=== PATIENT | female | born 1990 | race Caucasian/White ===

== ENCOUNTER 2016-08-17 06:00 | Inpatient (IN) | payer MEDICAID ==
--- NOTE | ~2016-08-17 | HP ---
Unit #: [id number] #: [id number] Patient: YOANA FORD [id number] [place] [address] [id number] I MR#: [id number] NAME: YOANA FORD ROOM: P185 Age: 25 Sex: F Admission Date: 08/17/2016 : 1990 Attending Physician: Antwon Ingram M.D. Admitting Physician: Antwon Ingram M.D. Primary Care Physician: Babar Nolan M.D. HISTORY AND PHYSICAL HISTORY OF PRESENT ILLNESS Yoana is a 25 year old admitted to [facility] because of her continued poly-illicit substance abuse to include IV heroin. PAST MEDICAL HISTORY 1. Long history of opioid abuse to include IV heroin. 2. Hepatitis C. PAST SURGICAL HISTORY Nothing reported. ALLERGIES Sulfa. SOCIAL HISTORY Smokes 1/2 pack per day. Drinks alcohol on occasion. Has a long history of poly-illicit substance abuse to include IV heroin. FAMILY HISTORY Medically noncontributory. REVIEW OF SYSTEMS CONSTITUTIONAL: No fever or chills. HEENT: Denies any sore throat, ear pain or runny nose. CARDIOVASCULAR: Denies chest pain, irregular heart rhythm or palpitations. CHEST: Denies shortness of breath or cough. No hemoptysis. GASTROINTESTINAL: Denies nausea, vomiting, diarrhea or chronic constipation. ENDOCRINE: Denies history of increased thirst or urination. No recent significant weight loss or gain. GENITOURINARY: Denies dysuria, frequency, or hematuria. SKIN: Denies any rashes. HEMATOLOGIC: Denies history of increased bleeding or bruising. MUSCULOSKELETAL: Denies any hot, swollen joints. No generalized muscle pain. NEUROLOGIC: Denies problems with vision or speech. No frequent, severe headaches. No numbness, tingling or weakness in any extremities. Denies loss of bladder or bowel control. CURRENT MEDICATIONS Detox protocol. PHYSICAL EXAMINATION Unit #: [id number] #: [id number] Patient: YOANA FORD GENERAL: Alert, well-nourished, no apparent distress. VITAL SIGNS: Blood pressure 115/78, heart rate 80, respirations 16, temperature 98.6. WEIGHT: 140. HEIGHT: 5 feet 7 inches. SKIN: Warm and dry without rash or lesion. HEENT: Normocephalic. TMs not viewed. Oral and nasal passages clear. Conjunctivae clear. PERRLA. EOMs intact. NECK: Supple without lymphadenopathy or thyromegaly. HEART: Regular rate and rhythm without murmur. LUNGS: Clear. ABDOMEN: Soft, nontender. : Not done. EXTREMITIES: No evidence of cyanosis, clubbing or edema. Moves all without focal deficit. NEUROLOGICAL: Grossly within normal limits. Cranial Nerves: II: Visual riojas are intact. III, IV AND : Extraocular movements are intact. Pupils are equal, round and reactive to light. V: Facial sensation is grossly normal. VII: Facial movements and expression are normal. VIII: Auditory acuity grossly intact. IX, X: Uvula is midline. Phonation is normal. XI: Patient shrugs shoulders and turns head normally. XII: Tongue protrudes in the midline. Sensory and Motor Function: Sensory and motor sensation is grossly normal. Motor: moves all extremities well. Coordination: Gait is normal. Deep Tendon Reflexes: Intact. IMPRESSION Psychiatric admission. RECOMMENDATIONS PSYCHIATRIC: Per psychiatrist. MEDICAL: See no contraindications to participate in facility's activities. MEDICAL PROGNOSIS Good. MEDICAL CONDITION Stable. Dictated by... Elyssa LeeALisa. for Buddy Beltran/lida TD: 08/17/2016 21:30 JOB #: [id number] Unit #: [id number] #: [id number] Patient: YOANA FORD HISTORY AND PHYSICAL Page 1 of 1 X Sarah Bernard HISTORY AND PHYSICAL
--- NOTE | ~2016-08-17 | DS ---
Unit #: [id number] #: [id number] Patient: DANITA FORD [id number] [place] [address] [id number] I MR#: [id number] NAME: DANITA FORD ROOM: [facility] Age: 25 Sex: F Admission Date: 08/17/2016 : 1990 Discharge Date: 08/18/2016 Attending Physician: Antwon Ingram M.D. Primary Care Physician: Babar Nolan M.D. DISCHARGE SUMMARY REASON FOR ADMISSION The patient is 25-year-old female, admitted with a history of Xanax and opioid abuse. HOSPITAL COURSE The patient was admitted to the [facility] unit and placed on routine detoxification protocol for opioids and benzodiazepines. She exhibited significant physical distress related to her withdrawal. On 08/18/2016, the patient suffered a seizure and was not for medical clearance. She was subsequently admitted to the [facility] hospital and discharge was ordered. 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 DISPOSITION ON DISCHARGE Under the circumstances of discharge, no medications or followup were arranged for the patient. Dictated by... Antwon Ingram M.D. CB/taylor TD: 08/20/2016 01:40 JOB #: [id number] DISCHARGE SUMMARY Page 1 of X Antwon Ingram MD X DISCHARGE SUMMARY
--- NOTE | ~2016-08-17 | PN ---
Unit #: [id number] #: [id number] Patient: DANITA FORD [id number] [facility] [address] [place] [address] [id number] I MR#: [id number] NAME: DANITA FORD ROOM: P185 Age: 25 Sex: F Admission Date: 08/17/2016 : 1990 Attending Physician: Antwon Ingram M.D. Admitting Physician: Antwon Ingram M.D. Primary Care Physician: Buddy Dumont PROGRESS NOTES DATE 08/18/2016 DISCUSSION The patient appears to be in significant GI distress. Today, has had severe diarrhea and feels as though she has soiled herself and is continuing to vomit copiously. We continue current aggressive treatment for her opioid withdrawal. Dictated by... Antwon Ingram M.D. CB/lida TD: 08/18/2016 17:41 JOB #: [id number] SIMI PROGRESS NOTES Page 1 of 1 X Antwon Ingram MD X PROGRESS NOTE
--- NOTE | ~2016-08-17 | PA ---
Unit #: [id number] #: [id number] Patient: DANITA FORD [id number] [place] [address] [id number] I MR#: [id number] NAME: DANITA FORD ROOM: P185 Age: 25 Sex: F Admission Date: 08/17/2016 : 1990 Date of Assessment: 08/17/2016 Attending Physician: Antwon Ingram M.D. Admitting Physician: Antwon Ingram M.D. Primary Care Physician: Babar Nolan M.D. PSYCHIATRIC ASSESSMENT IDENTIFYING INFORMATION The patient is a 25-year-old female admitted to the [address] [place] [address] with increasing abuse of heroin and Xanax and depression with suicidal ideation. CHIEF COMPLAINT "I relapsed." INFORMANT Patient, reliability is fair. HISTORY OF PRESENT ILLNESS The patient is a 25-year-old female admitted to the [address] [place] [address] after she had presented to this facility complaining of suicidal ideation with plan to harm herself. The patient reports increasing depression secondary to recent heroin relapse and a recent miscarriage. The patient reports that her plan was to take pills when the family members were asleep. The patient has been using 0.5 gram of heroin and 4 mg of Xanax on a daily basis. She last used on 08/16/2016. She was last hospitalized at this facility under the care of this physician in March of 2016. For more complete history of present illness, please refer to previously dictated notes. PAST PSYCHIATRIC HISTORY Reviewed, no changes. PAST MEDICAL HISTORY Reviewed, no changes. MEDICATIONS None. ALLERGIES Sulfa. FAMILY HISTORY Reviewed, no changes. SOCIAL HISTORY Reviewed, no changes. MENTAL STATUS EXAMINATION Examination at this time reveals the patient to be a well-developed Unit #: [id number] #: [id number] Patient: DANITA FORD well-nourished female appearing her stated age. She is in significant physical distress at the time of examination. She is awake, alert, and oriented in all spheres. Her mood is dysphoric, her affect blunted. Speech is generally well coherent. There are no gross deficits in memory or cognition noted. Intelligence is judged to be in the average range based on fund of knowledge. The patient is cooperative throughout the interview. She is currently endorsing positive suicidal ideation with plan to overdose. She denies homicidal ideation. She denies any psychotic symptoms. Her judgment and insight appear to be intact. ASSETS AND LIABILITIES The patient's assets: Motivation for change. Liabilities: Lack of resources. DIAGNOSTIC IMPRESSION 1. Dysthymic disorder. 2. Opioid use disorder. 3. Sedative-hypnotic use disorder. TREATMENT PLAN The patient remains hospitalized for safety and stabilization. Routine detoxification protocol has been initiated. The patient will participate in appropriate order of milieu activities. She is on detox protocol to cover benzodiazepines and opioids, and suicide precautions are in place. ESTIMATED LENGTH OF STAY 5 to 7 days. Dictated by... Antwon Ingram M.D. Tisha TD: 08/17/2016 14:25 JOB #: [id number] PSYCHIATRIC ASSESSMENT Page 1 of 1 X Antwon Ingram MD X PSYCHIATRIC ASSESSMENT
[2016-08-18 09:34] LABS: URINE APPEARANCE CLEAR; URINE BILIRUBIN NEG (NEG); URINE BLOOD NEG (NEG); URINE COLOR YELLOW; URINE GLUCOSE NEG (NEG); URINE KETONE NEG (NEG); URINE LEUKOCYTE ESTERASE NEG (NEG); URINE NITRATE NEG (NEG); URINE PH 7.5 (5-8); URINE PROTEIN NEG (NEG); URINE SPECIFIC GRAVITY 1.003 (1.003-1.035)
[2016-08-18 09:55] LABS: AMPHETAMINE NEG (NEG); BARBITURATES NEG (NEG); BENZODIAZEPINES POS (NEG); COCAINE NEG (NEG); MARIJUANA NEG (NEG); OPIATES POS (NEG); TRICYCLIC ANTIDEPRESSANTS NEG (NEG); U METHADONE NEG (NEG)
[2016-08-18] MEDS ORDERED: B-1100 MG PO (20:41)
[2016-08-18] MEDS ORDERED: FOLIC ACID1 MG PO (20:41)
[2016-08-18] MEDS ORDERED: MULTI VITAMIN1 EACH PO (20:42)
[2016-08-18] MEDS ORDERED: VITAMIN B-150 MG PO (20:42)
[2016-08-18] MEDS ORDERED: CATAPRES0.1 MG PO (20:44)
[2016-08-18] MEDS ORDERED: IMODIUM2 MG PO (20:45)
[2016-08-18] MEDS ORDERED: BENTYL10 MG PO (20:45)
[2016-08-18] MEDS ORDERED: ZOFRAN PO (20:46)
[2016-08-18] MEDS ORDERED: PHENERGAN25 MG/1 ML INJ (20:47)
[2016-08-18] MEDS ORDERED: PHENERGAN25 M1 PO (20:47)
[2016-08-18] MEDS ORDERED: PHENERGAN SUPP25 M1 PR (20:48)
[2016-08-18] MEDS ORDERED: ATIVAN PO (20:50)
[2016-08-18] MEDS ORDERED: DIAZEPAM PR (20:50)
[2016-08-18] MEDS ORDERED: ACETAMINOPHEN PR (20:51)
[2016-08-18] MEDS ORDERED: MILK OF MAGNESIA PO (20:53)
[2016-08-18] MEDS ORDERED: NEURONTIN600 MG PO (20:54)
[2016-08-18] MEDS ORDERED: MOTRIN400 M1 PO (20:54)
== END 2016-08-18 21:39 | disposition short-term general hospital (02) | DRG 897 ==
LOC: P1E 06:00
PROVIDERS: Specialist
PROC: HZ2ZZZZ Detoxification Services for Substance Abuse Treatment (ICD-10-PCS; principal; 2016-08-17)
DX: F11.23 Opioid dependence with withdrawal (principal); G40.509 Epileptic seizures related to external causes, not intractable, without status epilepticus; Z88.2 Allergy status to sulfonamides; F13.239 Sedative, hypnotic or anxiolytic dependence with withdrawal, unspecified
CPT/HCPCS: 80307; 81003; J2550

== ENCOUNTER 2016-08-18 18:26 | Inpatient (IN) | payer MEDICAID ==
--- NOTE | ~2016-08-18 | CT71 ---
[facility] A Service [facility] RADIOLOGY TEXT RESULTS PATIENT: DANITA FORD LOCATION: [facility] - : [birth year] UNIT #: [id number] AGE: [address]: Zulema Gould MD SEX: F ORDER DR: [id number] [address] [place], [place] [address] [id number] E MR#: [id number] Acc #: [id number] NAME: DANITA FORD : 1990 SEX: F STUDY DATE/TIME: 08/18/2016 18:44 UNIT: DANNY ROOM: STUDY DESCRIPTION: CT Head Wo Contrast Attending Physician: Babar Neal M.D. Ordering Physician: Reggie Paulino M.D. Primary Care Physician: Babar Nolan M.D. MEDICAL IMAGING REPORT This report is preliminary unless electronic signature is present EXAM CT head without contrast INDICATIONS Seizure, x2 today. Headache today. PROCEDURE Unenhanced CT head TECHNIQUE This CT exam was performed with one or more of the following radiation dose reduction techniques: automatic exposure control, adjustment of mA and/or kV according to patient size, and iterative reconstruction. COMPARISON 02/23/2012 FINDINGS No acute hemorrhage. No abnormal mass effect, extraaxial fluid collection or hydrocephalus. No evidence for an acute early subacute large territory infarct. No depressed calvarial fracture. Paranasal sinuses mastoid air cells clear. IMPRESSION No acute findings Dictated by... Jose Garcia M.D. THIS IS AN ELECTRONICALLY VERIFIED REPORT Jose Garcia M.D. at 08/21/2016 9:46 AM EED/ea [facility] A Service [facility] RADIOLOGY TEXT RESULTS PATIENT: DANITA FORD LOCATION: [facility]- : [birth year] UNIT #: [id number] AGE: [address]: Zulema Gould MD SEX: F ORDER DR: TD: 08/18/2016 21:24 JOB #: [id number] MEDICAL IMAGING REPORT Page 1 of 1 COPY
--- NOTE | ~2016-08-18 | EKG ---
PATIENT: DANITA FORD UNIT #: [id number] Ventricular Rate: 62 BPM Atrial Rate: 62 BPM P-R Interval: 162 ms QRS Duration: 74 ms Q-T Interval: 438 ms QTC Calculation(Bezet): 444 ms P [place]: 29 degrees Calculated R [place]: 37 degrees Calculated T [place]: 42 degrees Diagnosis Line: Sinus rhythm with marked sinus arrhythmia Diagnosis Line: Otherwise normal ECG Diagnosis Line: No previous ECGs available Diagnosis Line: Confirmed by JESSICA GIRON MD ([id number]) on Diagnosis Line: 08/19/2016 6:51:43 AM INTERPRETING MD: TESSIE
--- NOTE | ~2016-08-18 | HP ---
Unit #: [id number] #: [id number] Patient: DANITA FORD [id number] [address] [place], [place] [address] [id number] I MR#: [id number] NAME: DANITA FORD ROOM: 57868 Age: 25 Sex: F Admission Date: 08/18/2016 : 1990 Attending Physician: Antwan Aguilera M.D. Primary Care Physician: Babar Nolan M.D. HISTORY AND PHYSICAL CHIEF COMPLAINT Patient was sent from [facility] for seizures and benzo and opioid withdrawal. HISTORY OF PRESENT ILLNESS This is a 25-year-old female who has history of hepatitis C. She was admitted in [facility] for opiate and heroin and benzo withdrawals. She had seizure activity at [facility] around 1515 and patient was incontinent of bowel and bladder, confused, heart rate 40 and patient was sent to the emergency room here. She had one episode of seizure here in the ER also and then she has been postictal. CT head was negative. Eventually she was admitted for benzodiazepine, opiate withdrawal seizures. She is postictal at this time, unable to give me any history. She is opening the eyes with questions, otherwise she is not telling me any history. Most of information obtained through reviewing the chart. PAST MEDICAL HISTORY 1. History of hepatitis C. 2. History of opioid abuse including heroin. 3. History of benzodiazepine abuse. PAST SURGICAL HISTORY 1. MEDICATIONS FROM [facility] 1. Neurontin 600 mg t.i.d. p.r.n. 2. Motrin 400 mg q.6 h. p.r.n. 3. Phenergan 25 mg p.o. q.6 h. p.r.n. 4. Valium 10 mg q.4 h. p.r.n. 5. Lorazepam 2 mg p.o. p.r.n. 6. Ativan 1 mg p.r.n. 7. Milk of magnesia 30 mL p.r.n. for constipation. 8. Imodium 2 mg for diarrhea p.r.n. 9. Bentyl 10 mg p.o. q.8 h. for cramping. 10. Zofran 4 mg p.o. q.4 h. p.r.n. 11. Thiamine 200 mg daily. 12. Folic acid 1 mg daily. 13. Vitamin B 50 mg t.i.d. 14. Multivitamin daily. 15. Catapres 0.1 mg b.i.d. SOCIAL HISTORY She smokes one-half pack daily. Drinks alcohol occasionally. Long Unit #: [id number] #: [id number] Patient: DANITA FORD history of poly-illicit substance abuse including heroin. FAMILY HISTORY Noncontributory. REVIEW OF SYSTEMS Unobtainable from patient at this time. PHYSICAL EXAMINATION VITAL SIGNS: Temperature afebrile, heart rate 64, respiratory rate 18, blood pressure 113/77, oxygen saturation 99% on room air. GENERAL: Young female lying in the bed, comfortably, not in any distress. She is alert, awake, oriented times zero. She is lethargic. HEENT: Pupils are equal and reactive to light and accommodation. Head is normocephalic, atraumatic. NECK: Supple. No JVD. LUNGS: Clear to auscultation. No rhonchi, no wheezing. HEART: S1, S2. Regular rate and rhythm. ABDOMEN: Soft, nontender, nondistended. Bowel sounds positive. EXTREMITIES: Normal. No cyanosis, clubbing, or edema. NEUROLOGIC: Unable to do neurologic exam. DIAGNOSTIC STUDIES LABORATORY: Beta-HCG 87.52. Chemistry sodium 139, potassium 3.5, chloride 108, glucose 130, BUN 13, creatinine 0.5, LFTs within normal limits. Alcohol less than 5. Glucose 117. Troponin less than 0.05. White count 8.6, hemoglobin 12, hematocrit 38, platelets 239. UA is negative. Urine toxicology screen is positive for benzodiazepines and positive for opiates. IMAGING: Chest x-ray shows cardiomegaly with diffuse interstitial prominence suspicious for interstitial edema. CT head is negative. ASSESSMENT AND PLAN 1. Seizure activity most likely secondary to benzodiazepine and opiate withdrawals. Will monitor. 2. Benzodiazepine and opiate withdrawal. Keep one-to-one sitter. Patient is postictal at this time, keep her n.p.o. 3. Ask Speech do swallow evaluation in the morning. 4. History of opiate abuse including heroin. 5. Hepatitis C. 6. Positive beta-hCG with recent miscarriage. Ultrasound was done by the physician in the emergency room which was negative. 7. DVT prophylaxis. Will place the patient on SCDs. Dictated by Buddy Mackey TD: 08/18/2016 22:16 JOB #: [id number] Unit #: [id number] #: [id number] Patient: DANITA FORD HISTORY AND PHYSICAL Page 1 of 1 X X HISTORY AND PHYSICAL
--- NOTE | ~2016-08-18 | CR72 ---
[facility] A Service of [facility] RADIOLOGY TEXT RESULTS PATIENT: DANITA FORD LOCATION: [facility] 302-01 : [birth year] UNIT #: [id number] AGE: [address]: Zulema Gould MD SEX: F ORDER DR: [id number] [facility] [address] [place], [place] [address] [id number] E MR#: [id number] Acc #: [id number] NAME: DANITA FORD : 1990 SEX: F STUDY DATE/TIME: 08/18/2016 18:53 UNIT: [facility] ROOM: STUDY DESCRIPTION: CR Chest Single View Portable Attending Physician: Babar Neal M.D. Ordering Physician: Reggie Paulino M.D. Primary Care Physician: Babar Nolan M.D. MEDICAL IMAGING REPORT This report is preliminary unless electronic signature is present EXAM Portable chest. INDICATIONS Unresponsive with seizures and cough today. PROCEDURE Frontal view chest. COMPARISON None. FINDINGS Utpa-zp-ivdnsvdy cardiomegaly. There is diffuse interstitial prominence. No dense consolidation, effusion or pneumothorax. IMPRESSION Cardiomegaly and mild diffuse interstitial prominence suspicious for interstitial edema. Dictated by... Jose Garcia M.D. THIS IS AN ELECTRONICALLY VERIFIED REPORT Jose Garcia M.D. at 08/21/2016 9:46 AM ROMELIA/ilene TD: 08/18/2016 21:33 JOB #: [id number] MEDICAL IMAGING REPORT Page 1 of 1 COPY
--- NOTE | ~2016-08-18 | US106 ---
[facility] A Service of [facility] & [facility] RADIOLOGY TEXT RESULTS PATIENT: DANITA FORD LOCATION: A 302-01 : [birth year] UNIT #: [id number] AGE: [address]: Zulema Gould MD SEX: F ORDER DR: [id number] [facility] [address] [place], [place] [address] [id number] E MR#: [id number] Acc #: [id number] NAME: DANITA FORD : 1990 SEX: F STUDY DATE/TIME: 08/18/2016 19:23 UNIT: [facility] ROOM: STUDY DESCRIPTION: US Preg Uterus Transvaginal Attending Physician: Babar Neal M.D. Ordering Physician: Reggie Paulino M.D. Primary Care Physician: Babar Nolan M.D. MEDICAL IMAGING REPORT This report is preliminary unless electronic signature is present EXAM Pelvic ultrasound INDICATIONS Pelvic pain for the past 2 days. TECHNIQUE Villalobos-scale and Doppler imaging of the pelvis and transvaginal approach. COMPARISON The uterus is anteverted, measures 9 x 4.8 x 5.6 cm. Endometrium is thin. The right ovary measures 2.5 x 2.7 x 3.1 cm and contains a 2 cm cyst. Left ovary measures 1.3 x 3.2 x 1.2 cm and is unremarkable. No pelvic fluid. IMPRESSION Negative pelvic ultrasound. Dictated by... Jose Garcia M.D. THIS IS AN ELECTRONICALLY VERIFIED REPORT Jose Garcia M.D. at 08/21/2016 9:46 AM EED/mark TD: 08/18/2016 21:41 JOB #: [id number] MEDICAL IMAGING REPORT Page 1 of 1 COPY
[2016-08-18 18:18] LABS: URINE SOURCE CLEAN CATCH
[2016-08-18 18:45] LABS: URINE APPEARANCE CLEAR; URINE BLOOD NEG (NEG); URINE COLOR DK YELLOW; URINE GLUCOSE NEG (NEG); URINE KETONE 3+ (NEG); URINE LEUKOCYTE ESTERASE TRACE (NEG); URINE NITRATE NEG (NEG); URINE PROTEIN TRACE (NEG); URINE SPECIFIC GRAVITY 1.029 (1.003-1.035)
[2016-08-18 19:00] LABS: AMPHETAMINE NEG (NEG); BARBITURATES NEG (NEG); BENZODIAZEPINES POS (NEG); COCAINE NEG (NEG); MARIJUANA NEG (NEG); OPIATES POS (NEG); TRICYCLIC ANTIDEPRESSANTS NEG (NEG); U METHADONE NEG (NEG)
[2016-08-18 19:21] LABS: CULTURE INDICATED? NO; URINE BILIRUBIN NEG (NEG)
[2016-08-18 20:14] LABS: BASOPHIL% 0.1 % (0-2.5); HEMATOCRIT 38.4 % (35.0-45.0); HEMOGLOBIN 12.9 gm/dL (12.0-16.0); LYMPHOCYTE# 1.1 X10e3 (1.0-3.5); LYMPHOCYTE% 12.6 % (17.0-45.0); MEAN CELL VOLUME 97.6 FL (83-96); MEAN CORPUSCULAR HEMOGLOBIN 32.8 PG (28-34); MEAN CORPUSCULAR HGB CONC 33.6 g/dL (30-36); MEAN PLATELET VOLUME 8.4 FL (6.5-11.5); MONOCYTE# 0.1 X10e3 (0-1.0); MONOCYTE% 1.2 % (3.0-12.0); NEUTROPHIL# 7.4 X10e3 (1.5-7.1); NEUTROPHIL% 86.1 % (40-75); PLATELET COUNT 239 X10e3 (140-420); RED BLOOD COUNT 3.93 X10e (3.90-5.30); RED CELL DISTRIBUTION WIDTH 13.3 % (11.0-15.5); WHITE BLOOD COUNT 8.6 X10e3 (4.0-10.5)
[2016-08-18 20:17] LABS: DIFF IND NO
[2016-08-18 20:26] LABS: POC - CKMB <1.0 ng/mL (0.0-7.9); POC - TROPONIN <0.05 ng/mL (<=0.05)
[2016-08-18 20:34] LABS: ALBUMIN SERUM 3.9 g/dL (3.5-5.0); ALKALINE PHOSPHATASE 41 U/L (32-92); ALT (SGPT) 35 U/L (10-40); AST (SGOT) 26 U/L (10-42); BILIRUBIN, DIRECT 0.1 mg/dL (0.0-0.2); BILIRUBIN,INDIRECT 0.7 mg/dL (0.0-0.9); BILIRUBIN,TOTAL 0.8 mg/dL (0.2-2.0); BLOOD UREA NITROGEN 13 mg/dL (9-23); CALCIUM SERUM 8.8 mg/dL (8.4-10.2); CARBON DIOXIDE 18 mmol/L (22-31); CHLORIDE 108 mmol/L (100-111); CREATININE SERUM 0.5 mg/dL (0.6-1.4); GLOM FILT RATE Estimated 132.7 mL/min (>60); GLUCOSE FASTING 138 mg/dL (70-110); POTASSIUM 3.5 mmol/L (3.5-5.1); PROTEIN TOTAL SERUM 7.6 g/dL (6.0-8.3); SODIUM 139 mmol/L (135-145)
[2016-08-18 20:36] LABS: ALCOHOL BLOOD <5 mg/dL (0)
[2016-08-18] MEDS ORDERED: FOLIC ACID1 MG PO (20:41)
[2016-08-18] MEDS ORDERED: B-1100 MG PO (20:41)
[2016-08-18] MEDS ORDERED: VITAMIN B-150 MG PO (20:42)
[2016-08-18] MEDS ORDERED: MULTI VITAMIN1 EACH PO (20:42)
[2016-08-18] MEDS ORDERED: CATAPRES0.1 MG PO (20:44)
[2016-08-18] MEDS ORDERED: IMODIUM2 MG PO (20:45)
[2016-08-18] MEDS ORDERED: BENTYL10 MG PO (20:45)
[2016-08-18] MEDS ORDERED: ZOFRAN PO (20:46)
[2016-08-18] MEDS ORDERED: PHENERGAN25 M1 PO (20:47)
[2016-08-18] MEDS ORDERED: PHENERGAN25 MG/1 ML INJ (20:47)
[2016-08-18] MEDS ORDERED: PHENERGAN SUPP25 M1 PR (20:48)
[2016-08-18] MEDS ORDERED: DIAZEPAM PR (20:50)
[2016-08-18] MEDS ORDERED: ATIVAN PO (20:50)
[2016-08-18] MEDS ORDERED: ACETAMINOPHEN PR (20:51)
[2016-08-18] MEDS ORDERED: MILK OF MAGNESIA PO (20:53)
[2016-08-18] MEDS ORDERED: NEURONTIN600 MG PO (20:54)
[2016-08-18] MEDS ORDERED: MOTRIN400 M1 PO (20:54)
== END 2016-08-19 13:30 | disposition left against medical advice (07) | DRG 894 ==
LOC: CED 18:26 → CEDOF 21:50 → C3A PCU 23:24
PROVIDERS: Emergency Medicine
DX: F11.23 Opioid dependence with withdrawal (principal); R56.9 Unspecified convulsions; F17.210 Nicotine dependence, cigarettes, uncomplicated; F15.23 Other stimulant dependence with withdrawal; B19.20 Unspecified viral hepatitis C without hepatic coma; R00.1 Bradycardia, unspecified
CPT/HCPCS: 36415; 51701; 70450; 71010; 76817; 80048; 80076; 80307; 81003; 82553; 82947; 84484; 84702; 84703; 85025; 92610; 93005; 96361; 96374; 96375; 99285; G0480; J2060; J2405; J2550

== ENCOUNTER 2016-08-24 08:42 | Inpatient (IN) | payer MEDICAID ==
--- NOTE | ~2016-08-24 | PA ---
Unit #: [id number] #: [id number] Patient: DANITA FORD [id number] [place] [address] [id number] I MR#: [id number] NAME: DANITA FORD ROOM: P203 Age: 25 Sex: F Admission Date: 08/24/2016 : 1990 Date of Assessment: 08/25/2016 Attending Physician: Antwon Ingram M.D. Admitting Physician: Antwon Ingram M.D. Primary Care Physician: Babar Nolan M.D. PSYCHIATRIC ASSESSMENT IDENTIFYING INFORMATION The patient is a 25-year-old female admitted to the [address] [place] [address] Unit after a recurrence of heroin addiction. CHIEF COMPLAINT "I relapsed." INFORMANT(S) Patient, reliability is good. HISTORY OF PRESENT ILLNESS The patient is a 25-year-old female who was admitted to the [address] [place] [address] with recurrent abuse of heroin. She has been using Xanax though she had previously abused Xanax. During her last day in this facility, she had a benzodiazepine-induced (1) __ withdrawal with withdrawal seizure and was transported to [facility] from where she was discharged and now returned to this facility. Shortly after leaving, the patient began using heroin once again. The patient reports that she wants to get "stabilized on my medications again" though we do not have a list of the patient's most recent medications, and she was not taking the medications while hospitalized previously. When seen today, the patient appears to be in significant physical distress related to opioid withdrawal. She denies that she has been abusing benzodiazepines. For more complete history of present illness, please refer to previously dictated notes. PAST PSYCHIATRIC HISTORY Reviewed, no changes. PAST MEDICAL HISTORY Reviewed, no changes. MEDICATIONS None. ALLERGIES None. FAMILY HISTORY Reviewed, no changes. SOCIAL HISTORY Reviewed, no changes. Unit #: [id number] #: [id number] Patient: DANITA FORD MENTAL STATUS EXAMINATION Examination at this time reveals the patient to be a well-developed well-nourished female appearing stated age. She is in significant physical distress related to opioid withdrawal. She is awake, alert, and oriented in all spheres. Her mood is dysphoric, her affect constricted. Speech is generally well-coherent. There are no gross deficits in memory or cognition noted. Intelligence is judged to be in the average range based on fund of knowledge. The patient is cooperative throughout the interview. She is currently reporting positive suicidal ideation. She denies homicidal ideation. She denies any psychotic symptoms. Her judgment and insight appear to be somewhat impaired. ASSETS AND LIABILITIES The patient's assets are to be assessed. Liabilities: Lack of resources. Ongoing substance use. DIAGNOSTIC IMPRESSION 1. Opioid use disorder. 2. Sedative-hypnotic use disorder. 3. Dysthymic disorder. 4. Hepatitis C. 5. History of withdrawal seizure. TREATMENT PLAN The patient remains hospitalized for safety and stabilization. At this point, we will focus on detoxification, but we will seek information regarding previous successful pharmacologic treatment by contacting the patient's pharmacy or other providers. The patient will participate in appropriate order of milieu activities and seizures precautions are in place. ESTIMATED LENGTH OF STAY 5 days. Dictated by... Antwon Ingram M.D. XIOMARA/wendie TD: 08/25/2016 14:41 JOB #: [id number] PSYCHIATRIC ASSESSMENT Page 1 of 1 X Antwon Ingram MD X PSYCHIATRIC ASSESSMENT
--- NOTE | ~2016-08-24 | HP ---
Unit #: [id number] #: [id number] Patient: YOANA FORD [id number] [place] [address] [id number] MR#: [id number] NAME: YOANA FORD ROOM: P203 Age: 25 Sex: F Admission Date: 08/24/2016 : 1990 Attending Physician: Antwon Ingram M.D. Admitting Physician: Antwon Ingram M.D. Primary Care Physician: Babar Nolan M.D. HISTORY AND PHYSICAL HISTORY OF PRESENT ILLNESS Yoana is a 25 year old admitted to [address] [place] [address] because of her continued drug use. She was admitted here on 08/17/16. She suffered a detox seizure and was sent to [facility]. She is readmitted back to our facility because of her continued drug use. PAST MEDICAL HISTORY 1. Long history of opioid abuse to include IV heroin. 2. Hepatitis C. 3. History of withdrawal seizures, benzodiazepines. PAST SURGICAL HISTORY Nothing reported. ALLERGIES Sulfa. SOCIAL HISTORY Smokes 1/2 pack per day. Drinks alcohol on occasion. Has a long history of poly-illicit substance abuse to include IV heroin and benzodiazepines. FAMILY HISTORY Medically noncontributory. REVIEW OF SYSTEMS CONSTITUTIONAL: No fever or chills. HEENT: Denies any sore throat, ear pain or runny nose. CARDIOVASCULAR: Denies chest pain, irregular heart rhythm or palpitations. CHEST: Denies shortness of breath or cough. No hemoptysis. GASTROINTESTINAL: Denies nausea, vomiting, diarrhea or chronic constipation. ENDOCRINE: Denies history of increased thirst or urination. No recent significant weight loss or gain. GENITOURINARY: Denies dysuria, frequency, or hematuria. SKIN: Denies any rashes. HEMATOLOGIC: Denies history of increased bleeding or bruising. MUSCULOSKELETAL: Denies any hot, swollen joints. No generalized muscle pain. NEUROLOGIC: Denies problems with vision or speech. No frequent, severe headaches. No numbness, tingling or weakness in any extremities. Denies loss of bladder or bowel control. CURRENT MEDICATIONS Unit #: [id number] #: [id number] Patient: YOANA FORD Detox protocol. PHYSICAL EXAMINATION GENERAL: Alert, well-nourished, in no apparent distress. VITAL SIGNS: Blood pressure 110/78, heart rate 80, respirations 16, temperature 98.6. WEIGHT: 140. HEIGHT: 5 feet 7 inches. SKIN: Warm and dry without rash or lesion. HEENT: Normocephalic. TMs not viewed. Oral and nasal passages clear. Conjunctivae clear. PERRLA. EOMs intact. NECK: Supple without lymphadenopathy or thyromegaly. HEART: Regular rate and rhythm without murmur. LUNGS: Clear. ABDOMEN: Soft, nontender. : Not done. EXTREMITIES: No evidence of cyanosis, clubbing or edema. Moves all without focal deficit. NEUROLOGICAL: Grossly within normal limits. Cranial Nerves: II: Visual riojas are intact. III, IV AND : Extraocular movements are intact. Pupils are equal, round and reactive to light. V: Facial sensation is grossly normal. VII: Facial movements and expression are normal. VIII: Auditory acuity grossly intact. IX, X: Uvula is midline. Phonation is normal. XI: Patient shrugs shoulders and turns head normally. XII: Tongue protrudes in the midline. Sensory and Motor Function: Sensory and motor sensation is grossly normal. Motor: moves all extremities well. Coordination: Gait is normal. Deep Tendon Reflexes: Intact. IMPRESSION Psychiatric admission. RECOMMENDATIONS PSYCHIATRIC: Per psychiatrist. MEDICAL: See no contraindications to participate in facility's activities. MEDICAL PROGNOSIS Good. MEDICAL CONDITION Stable. Dictated by... Sarah Bernard P.A.-C. for Buddy Beltran/lida TD: 08/24/2016 19:51 JOB #: [id number] Unit #: [id number] #: [id number] Patient: YOANA FORD HISTORY AND PHYSICAL Page 1 of 1 X Sarah Bernard HISTORY AND PHYSICAL
--- NOTE | ~2016-08-24 | PN ---
Unit #: [id number] #: [id number] Patient: DANITA FORD [id number] [facility] [address] [place] [address] [id number] MR#: [id number] NAME: DANITA FORD ROOM: P203 Age: 25 Sex: F Admission Date: 08/24/2016 : 1990 Attending Physician: Antwon Ingram M.D. Admitting Physician: Antwon Ingram M.D. Primary Care Physician: Buddy Dumont PROGRESS NOTES DATE 08/26/2016 DISCUSSION The patient is abed today, resting comfortably and cannot be aroused for interview. We have reinitiated previously effective medications for her, and we continue to work towards possible post-discharge treatment options. Dictated by... Antwon Ingram M.D. CB/wendie TD: 08/26/2016 13:53 JOB #: [id number] SIMI PROGRESS NOTES Page 1 of 1 X Antwon Ingram MD X PROGRESS NOTE
--- NOTE | ~2016-08-24 | DS ---
Unit #: [id number] #: [id number] Patient: DANITA FORD [id number] [place] [address] [id number] MR#: [id number] NAME: DANITA FORD ROOM: P203 Age: 25 Sex: F Admission Date: 08/24/2016 : 1990 Discharge Date: 08/27/2016 Attending Physician: Antwon Ingram M.D. Primary Care Physician: Babar Nolan M.D. DISCHARGE SUMMARY REASON FOR ADMISSION The patient is a 25-year-old female, admitted to the [address] [place] [address] unit with recurrent abuse of sedative hypnotics and opioids. HOSPITAL COURSE The patient was admitted to the [address] [place] [address] unit and placed on routine detoxification protocol covering both opioids and sedative hypnotics. Her detox was an uneventful one. She was restarted on previously prescribed Lexapro, Seroquel, and Vistaril. By 08/27/2016, the patient requested discharge citing a need to attend a court hearing. Discharge was ordered. FINAL DIAGNOSES Sedative hypnotic use disorder, opioid use disorder, dysthymic disorder. DISPOSITION ON DISCHARGE The patient is discharged on the following medications: Gabapentin 600 mg t.i.d. for chronic pain, Lexapro 10 mg daily for depression, Seroquel 100 mg at h.s. p.r.n. insomnia, Vistaril 50 mg q.6 hours p.r.n. anxiety, Junel Fe once daily, reason unknown. DISCHARGE INSTRUCTIONS No dietary or physical restrictions were placed on the patient at the time of discharge. FOLLOWUP Followup will take place through the auspices of the intensive outpatient program provided by this facility. PROGNOSIS The patient's prognosis is considered fair. It is noted that this physician will not provide a prescription for Neurontin per the patient. Dictated by... Antwon Ingram M.D. CB/chasityl TD: 08/27/2016 19:21 JOB #: [id number] Unit #: [id number] #: [id number] Patient: DANITA FORD DISCHARGE SUMMARY Page 1 of 1 X Antwon Ingram MD DISCHARGE SUMMARY
[~2016-08-24 08:42] MED LIST: ACETAMINOPHEN PR; ATIVAN PO; B-1100 MG PO; BENTYL10 MG PO; CATAPRES0.1 MG PO; DIAZEPAM PR; FOLIC ACID1 MG PO; IMODIUM2 MG PO; MILK OF MAGNESIA PO; MOTRIN400 M1 PO; MULTI VITAMIN1 EACH PO; NEURONTIN600 MG PO; PHENERGAN SUPP25 M1 PR; PHENERGAN25 M1 PO; PHENERGAN25 MG/1 ML INJ; VITAMIN B-150 MG PO; ZOFRAN PO
[2016-08-25 09:40] LABS: URINE BILIRUBIN NEG (NEG); URINE BLOOD NEG (NEG); URINE COLOR BROWN; URINE GLUCOSE NORM (NORM); URINE KETONE NEG (NEG); URINE LEUKOCYTE ESTERASE 1+ (NEG); URINE NITRATE POS (NEG); URINE PROTEIN NEG (NEG); URINE SPECIFIC GRAVITY 1.025 (1.003-1.035); URINE UROBILINOGEN NORM (NORM)
[2016-08-25 09:46] LABS: URINE APPEARANCE TURBID
[2016-08-25 10:24] LABS: URINE BACTERIA AUWI 1+ (NEGATIVE)
[2016-08-25 10:25] LABS: URINE AMORPHOUS SEDIMENT AMORP URATES; URINE CRYSTALS CALCIUM OXALATE /[HPF]; URINE SQUAMOUS EPITHELIAL CELL FEW /[HPF]
[2016-08-25 10:56] LABS: AMPHETAMINE NEG (NEG); BARBITURATES NEG (NEG); BENZODIAZEPINES NEG (NEG); COCAINE NEG (NEG); MARIJUANA NEG (NEG); OPIATES POS (NEG); TRICYCLIC ANTIDEPRESSANTS NEG (NEG); U METHADONE NEG (NEG)
== END 2016-08-27 13:00 | disposition home or self-care (01) | DRG 897 ==
LOC: POF 08:42 → P2S 14:09
PROVIDERS: Specialist
PROC: HZ2ZZZZ Detoxification Services for Substance Abuse Treatment (ICD-10-PCS; principal; 2016-08-25)
DX: F11.10 Opioid abuse, uncomplicated (principal); F13.10 Sedative, hypnotic or anxiolytic abuse, uncomplicated; G40.509 Epileptic seizures related to external causes, not intractable, without status epilepticus; F34.1 Dysthymic disorder; B19.20 Unspecified viral hepatitis C without hepatic coma
CPT/HCPCS: 80307; 81003; 86592